=== PATIENT | female | born 1970 | race Hispanic/Latino ===

== ENCOUNTER 2017-05-19 18:37 | Emergency (ER) | payer SELFPAY ==
[2017-05-19] MEDS ORDERED: TYLENOL PO ONE (19:34)
[2017-05-19] MEDS ORDERED: TYLENOL ONE (19:35)
[2017-05-19 19:49] LABS: Basophils % (Auto) 0.6 % (0.0-1.8); Eosinophils % (Auto) 1.1 % (0.0-4.3); Hematocrit 41.5 % (30.3-42.9); Hemoglobin 13.8 gm/dl (10.1-14.3); Mean Corpuscular HGB Conc 33 % (30-34); Mean Corpuscular Hemoglobin 33 pg (28-32); Mean Corpuscular Volume 99 fl (79-97); Platelet Count 266 K/mm3 (140-440); Red Blood Count 4.21 M/mm3 (3.65-5.03); Red Cell Distribution Width 13.3 % (13.2-15.2); White Blood Count 11.3 K/mm3 (4.5-11.0)
[2017-05-19 20:07] LABS: Anion Gap 13 mmol/L; Blood Urea Nitrogen 7 mg/dL (7-17); Calcium 8.9 mg/dL (8.4-10.2); Carbon Dioxide 28 mmol/L (22-30); Chloride 101.3 mmol/L (98-107); Glucose 103 mg/dL (65-100); Potassium 4.4 mmol/L (3.6-5.0); Sodium 138 mmol/L (137-145)
--- NOTE | 2017-05-19 20:58 | Ultrasound Report ---
FINAL REPORT PROCEDURE: US PELVIC COMPLETE TECHNIQUE: Real-time transabdominal sonography in multiple planes of pelvis was performed with image documentation. This examination was performed without Doppler. Vascular abnormalities, including ovarian torsion, will not be detectable without Doppler evaluation. CPT 65209 HISTORY: LEFT LOWER ABD PAIN COMPARISON: No prior studies are available for comparison. FINDINGS: UTERUS Size: 7 x 4 x 4 cm. Endometrial thickness: 2 mm. Orientation: anteverted. Cervix: Normal. Fibroids/masses: None. RIGHT Ovary: 2.2 x 1.4 x 1.6 cm. Appearance: Normal. LEFT Ovary: 1.7 x 1.2 x 1.5 cm. Appearance: Normal. Pelvic fluid: None. Other: None. IMPRESSION: Normal Examination
--- NOTE | 2017-05-19 20:58 | Ultrasound Report ---
FINAL REPORT PROCEDURE: US TRANSVAGINAL TECHNIQUE: Real-time transvaginal sonography in multiple planes of the pelvis was performed with image documentation. This examination was performed without Doppler. Vascular abnormalities, including ovarian torsion, will not be detectable without Doppler evaluation. CPT 39778 HISTORY: LEFT LOWER ABD PAIN COMPARISON: No prior studies are available for comparison. FINDINGS: UTERUS Size: 7 x 4 x 4 cm. Endometrial thickness: 2 mm. Orientation: anteverted. Cervix: Normal. Fibroids/masses: None. RIGHT Ovary: 2.2 x 1.4 x 1.6 cm. Appearance: Normal. LEFT Ovary: 1.7 x 1.2 x 1.5 cm. Appearance: Normal. Pelvic fluid: None. Other: None. IMPRESSION: Normal Examination.
[2017-05-20] MEDS ORDERED: NACL 0.9% 1000 ML 1,000 ML IV ONE (00:20)
[2017-05-20] MEDS ORDERED: DILAUDID IV ONE ×4 (00:20→02:30)
[2017-05-20] MEDS ORDERED: ZOFRAN IV ONE (00:20)
[2017-05-20] MEDS ORDERED: NACL ONE (00:41)
[2017-05-20 01:32] VITALS: BP 114/49
--- NOTE | 2017-05-20 01:40 | Cat Scan Report ---
FINAL REPORT PROCEDURE: CT ABDOMEN PELVIS W CON TECHNIQUE: Computerized axial tomography of the abdomen and pelvis was performed after the IV injection of iodinated nonionic contrast. HISTORY: llq pain, hx of divericulitis COMPARISON: No prior studies are available for comparison. FINDINGS: Visualized lower thorax: No significant abnormality. Liver: Normal size and attenuation. Spleen: Normal size and attenuation. Gallbladder and biliary system: Normal. Pancreas: Normal. Adrenals: Normal. Kidneys: Normal. GI tract: The stomach is normal. The small bowel has a normal caliber. No obstruction, ileus or enteritis. The cecum and appendix are normal. There is some bowel wall thickening in the distal descending and sigmoid colon, multiple diverticula this region are noted. Mild diverticulitis this area is suspected. No complication.. Lymph nodes and mesentery: Normal. Vasculature: Normal. Bladder: Normal. Reproductive organs: Normal. Peritoneum: No free fluid. Musculoskeletal structures: No significant abnormality. Other: None. IMPRESSION: Mild diverticulitis of the distal descending and sigmoid colon. No complication. No evidence of intestinal or urinary tract obstruction. No ileus or enteritis.
[2017-05-20] MEDS ORDERED: TORADOL IV ONE (02:02)
[2017-05-20] MEDS ORDERED: FLAGYL PO ONE (02:04)
[2017-05-20] MEDS ORDERED: LEVAQUIN PO ONE (02:04)
--- NOTE | 2017-05-20 02:13 | Emergency Department Report ---
ED Abdominal Pain HPI - General Chief Complaint: Abdominal Pain Stated Complaint: PELVIC PAIN Time Seen by Provider: 05/19/17 23:40 Source: patient Mode of arrival: Ambulatory Limitations: No Limitations - History of Present Illness Initial Comments: 46-year-old female with a past medical history previous tubal ligation and diverticulitis presents to the hospital complaining of left lower quadrant pain 1 day. Pain is constant, stabbing, worse with palpation. Rated 10/10 in intensity. No alleviating factors. Patient received a [facility] prior to evaluation had a pelvic exam, diagnosed with a "slight UTI", and since the ER for pelvic ultrasound. Patient received antibiotics shot and prescription for a no antibody pills prior to discharge from [facility]. Severity scale (0 -10): 8 - Related Data Previous Rx's Medication Instructions Recorded Last Taken Type Ciprofloxacin HCl [Ciprofloxacin 500 mg PO BID #20 tablet 05/20/17 Unknown Rx TAB] HYDROcodone/APAP 7.5-325 [[place] 1 each PO Q6HR PRN #20 tablet 05/20/17 Unknown Rx 7.5/325] Ibuprofen [Motrin] 600 mg PO Q8H PRN #30 tablet 05/20/17 Unknown Rx Ondansetron [Zofran Odt] 4 mg PO Q8HR PRN #20 tab.rapdis 05/20/17 Unknown Rx metroNIDAZOLE [Flagyl] 500 mg PO Q8HR #30 tablet 05/20/17 Unknown Rx Allergies Allergy/AdvReac Type Severity Reaction Status Date / Time shrimp Allergy Angioedema Verified 05/19/17 19:39 ED Review of Systems ROS: Stated complaint: PELVIC PAIN Other details as noted in HPI Comment: All other systems reviewed and negative Other: Constitutional: No fevers chills Eyes: No eye pain visual changes ENT: No ear pain or throat pain Neck: Denies pain Respiratory: Denies cough wheezing shortness of breath Cardiovascular: Denies chest pain, palpitations, syncope GI: As per HPI : Denies dysuria Musculoskeletal: Denies back pain Skin: Denies rash, lesions, erythema Neurologic: Denies headache, numbness, weakness Psychiatric: Denies suicidal ideation, hallucinations ED Past Medical Hx - Past Medical History Previous Medical History?: No Additional medical history: Diverticulitis - Surgical History Past Surgical History?: Yes Additional Surgical History: TUBAL LIGATION / TONSILECTOMY - Social History Smoking Status: Current Every Day Smoker Substance Use Type: None - Medications Home Medications: Home Medications Medication Instructions Recorded Confirmed Last Taken Type Ciprofloxacin HCl [Ciprofloxacin 500 mg PO BID #20 tablet 05/20/17 Unknown Rx TAB] HYDROcodone/APAP 7.5-325 [[place] 1 each PO Q6HR PRN #20 tablet 05/20/17 Unknown Rx 7.5/325] Ibuprofen [Motrin] 600 mg PO Q8H PRN #30 tablet 05/20/17 Unknown Rx Ondansetron [Zofran Odt] 4 mg PO Q8HR PRN #20 tab.rapdis 05/20/17 Unknown Rx metroNIDAZOLE [Flagyl] 500 mg PO Q8HR #30 tablet 05/20/17 Unknown Rx ED Physical Exam - General Limitations: No Limitations - Other Other exam information: General: No limitations, patient is alert in no acute distress Head exam: Atraumatic, normocephalic Eyes exam: Normal appearance, pupils equal reactive to light, extraocular movements intact ENT: Moist mucous membrane, normal oropharynx Neck exam: Normal inspection, full range of motion, no meningismus nontender Respiratory exam: Clear to auscultation bilateral, no wheezes, rales, crackles Cardiovascular: Normal rate and rhythm, normal heart sounds Abdomen: Soft, nondistended, left lower quadrant tenderness with guarding, with normal bowel sounds, no rebound Extremity: Full range of motion normal inspection no deformity Back: Normal Inspection, full range of motion, no tenderness Neurologic: Alert, oriented x3, cranial nerves intact, no motor or sensory deficit Psychiatric: normal affect, normal mood Skin: Warm, dry, intact ED Course Vital Signs 05/19/17 05/20/17 19:24 01:31 Temperature 98.6 F Pulse Rate 105 H 66 Respiratory 20 16 Rate Blood Pressure 123/61 Blood Pressure 114/49 [Right] O2 Sat by Pulse 99 97 Oximetry - Reevaluation(s) Reevaluation #1: 05/20/17 02:11 After Dilaudid 0.5 mg, Zofran, no Ricki patient continues to have 8/10 pain. Additional meds ordered including antibiotics ED Medical Decision Making - Lab Data Result diagrams: 05/19/17 19:37 05/19/17 19:37 - Radiology Data Radiology results: report reviewed interpreted by me: CT abdomen and pelvis IV conscious: Mild diverticulitis of the distal descending and sigmoid colon. No complication. Transvaginal/pelvic ultrasound: Normal - Medical Decision Making Patient symptoms and CT consistent with diverticulitis. Patient was treated with antibiotics, pain medication, and outpatient follow-up. - Differential Diagnosis ovarian cysts, UTI, renal colic, diverticulitis Critical Care Time: No Critical care attestation.: If time is entered above; I have spent that time in minutes in the direct care of this critically ill patient, excluding procedure time. ED Disposition Clinical Impression: Diverticulitis Disposition: TO HOME OR SELFCARE Is pt being admited?: No Does the pt Need Aspirin: No Condition: Stable Instructions: Diverticulitis (ED) Additional Instructions: Take the the medication as prescribed. Please return if symptoms worsen. Follow up with your doctors. Prescriptions: Ciprofloxacin HCl [Ciprofloxacin TAB] 500 mg PO BID #20 tablet HYDROcodone/APAP 7.5-325 [[place] 7.5/325] 1 each PO Q6HR PRN #20 tablet PRN Reason: Pain Ibuprofen [Motrin] 600 mg PO Q8H PRN #30 tablet PRN Reason: Pain metroNIDAZOLE [Flagyl] 500 mg PO Q8HR #30 tablet Ondansetron [Zofran Odt] 4 mg PO Q8HR PRN #20 tab.rapdis PRN Reason: Nausea And Vomiting Referrals: PRIMARY CARE,MD [Primary Care Provider] - 3-5 Days Time of Disposition: 02:58
[2017-05-20 02:21] LABS: Bilirubin,Urine NEG (Negative); Blood,Urine NEG (Negative); Ketones,Urine NEG (Negative); Leukocyte Esterase,Urine NEG (Negative); Mucus,Urine 2+ /HPF; Nitrite,Urine NEG (Negative); Protein,Urine <15 mg/dL mg/dL (Negative); Urobilinogen,Urine < 2.0 mg/dL (<2.0)
== END 2017-05-20 03:12 | disposition home or self-care (01) ==
LOC: ED 18:37
DX: K57.92 Diverticulitis of intestine, part unspecified, without perforation or abscess without bleeding (principal); F17.200 Nicotine dependence, unspecified, uncomplicated; Z91.013 Allergy to seafood
CPT/HCPCS: 36415; 74177; 76830; 76856; 80048; 81001; 84703; 85025; 96361; 96374; 96375; 96376; 99284; J1170; J1885; J2405; J7030; Q9967